=== PATIENT | female | born 1975 | race Caucasian/White ===

== ENCOUNTER 2020-07-17 12:50 | Emergency (ER) | payer OTHER ==
[2020-07-17 13:04] VITALS: BP 112/71; PULSE 108; TEMP 98.7; BMI 10.8
== END 2020-07-17 14:45 | disposition home or self-care (01) ==
LOC: JER 12:50
DX: U07.1 COVID-19 (principal)
CPT/HCPCS: 71046-TC-FY; 99283-25; C9803; U0003

== ENCOUNTER 2020-09-07 13:10 | Emergency (ER) | payer OTHER ==
[2020-09-07 13:27] VITALS: BMI 30.4
[2020-09-07] MEDS ORDERED: ACETAMINOPHEN 500 MG TABLET (FP) PO ONE (14:32)
[2020-09-07 15:48] VITALS: BP 123/69; PULSE 100; TEMP 99
== END 2020-09-07 15:48 | disposition home or self-care (01) ==
LOC: JER 13:10
DX: U07.1 COVID-19 (principal)
CPT/HCPCS: 87804; 99283-25; C9803; U0003